=== PATIENT | male | born 1950 | race Two or more races ===

== ENCOUNTER 2017-06-04 15:09 | Outpatient (CLI) | payer OTHER | END 2017-06-04 15:10 | disposition home or self-care (01) | LOC: RAD 15:09 | DX: Z00.00 Encounter for general adult medical examination without abnormal findings (principal) ==

== ENCOUNTER 2018-06-02 14:17 | Outpatient (CLI) | payer OTHER | END 2018-06-02 14:51 | disposition home or self-care (01) | LOC: RAD 14:17 | DX: Z11.1 Encounter for screening for respiratory tuberculosis (principal) ==

== ENCOUNTER 2020-04-03 11:11 | Outpatient (CLI) | payer OTHER | END 2020-04-03 12:29 | disposition home or self-care (01) | LOC: PPH VACUNA 11:11 | PROVIDERS: ATTEND Emergency Medicine Pediatric Emergency Medicine | DX: Z23 Encounter for immunization (principal) ==

== ENCOUNTER → 2020-05-23 | Outpatient (CLI) | payer OTHER | END | disposition home or self-care (01) | LOC: MRI 12:38 | PROVIDERS: ATTEND Radiology Diagnostic Radiology | DX: M54.5 Low back pain (principal); M54.30 Sciatica, unspecified side; R10.10 Upper abdominal pain, unspecified | CPT/HCPCS: 72148; 72195 ==

== ENCOUNTER 2020-06-14 12:51 | Outpatient (CLI) | payer OTHER | END 2020-06-14 12:55 | disposition home or self-care (01) | LOC: RAD 12:51 | PROVIDERS: ATTEND Radiology Diagnostic Radiology | DX: I10 Essential (primary) hypertension (principal); Z71.0 Person encountering health services to consult on behalf of another person ==

== ENCOUNTER → 2020-07-18 07:52 | Outpatient (CLI) | payer OTHER | END | disposition home or self-care (01) | LOC: LAB 07:02 | PROVIDERS: ATTEND Radiology Diagnostic Radiology | DX: Z20.818 Contact with and (suspected) exposure to other bacterial communicable diseases (principal) ==

== ENCOUNTER → 2020-12-05 08:00 | Outpatient (CLI) | payer OTHER | END | disposition home or self-care (01) | LOC: PPH VACUNA 08:00 | PROVIDERS: ATTEND Emergency Medicine Pediatric Emergency Medicine | DX: Z23 Encounter for immunization (principal) ==

== ENCOUNTER 2020-12-05 08:58 | Outpatient (CLI) | payer OTHER | END 2020-12-05 09:02 | disposition home or self-care (01) | LOC: LAB 08:58 | PROVIDERS: ATTEND Radiology Diagnostic Radiology | DX: Z20.822 Contact with and (suspected) exposure to COVID-19 (principal) ==

== ENCOUNTER → 2021-01-08 08:25 | Outpatient (CLI) | payer OTHER | END | disposition home or self-care (01) | LOC: LAB 08:25 | PROVIDERS: ATTEND Radiology Diagnostic Radiology | DX: Z03.818 Encounter for observation for suspected exposure to other biological agents ruled out (principal) ==

== ENCOUNTER → 2021-05-06 08:14 | Outpatient (CLI) | payer OTHER ==
[~2021-05-06 08:14] MED LIST: CELEBREX200MG PO; DIAZEPAM5 MG; FINASTERIDE5 MG; MEDROLPACK PO; METHOCARBAMOL750 MG PO; SYNTHROID200 MCG; TAMSULOSIN HCL0.4 MG; ZESTRIL20 MG
== END | disposition home or self-care (01) ==
LOC: LAB 08:14
PROVIDERS: ATTEND Physical Medicine & Rehabilitation
DX: N30.01 Acute cystitis with hematuria (principal)

== ENCOUNTER 2021-05-06 08:38 | Outpatient (CLI) | payer OTHER ==
[~2021-05-06 08:38] MED LIST changes: -DIAZEPAM5 MG; -FINASTERIDE5 MG; -SYNTHROID200 MCG; -TAMSULOSIN HCL0.4 MG; -ZESTRIL20 MG
[2021-05-06] MEDS ORDERED: SYNTHROID200 MCG (23:54)
[2021-05-07] MEDS ORDERED: ZESTRIL20 MG (00:01)
[2021-05-07] MEDS ORDERED: DIAZEPAM5 MG (15:23)
[2021-05-07] MEDS ORDERED: TAMSULOSIN HCL0.4 MG (15:23)
[2021-05-07] MEDS ORDERED: FINASTERIDE5 MG (15:23)
== END 2021-05-06 09:00 | disposition home or self-care (01) ==
LOC: TOM 08:38 → EDBD 08:38 → TOM 09:00
PROVIDERS: ATTEND Radiology Diagnostic Radiology
DX: N49.2 Inflammatory disorders of scrotum (principal); R31.0 Gross hematuria
CPT/HCPCS: 74178; 76770; 76870; Q9965

== ENCOUNTER 2021-05-06 23:46 | Inpatient (IN) | payer OTHER ==
[~2021-05-06] VITALS: Ht 177.8 cm; Wt 95.3 kg
[2021-05-06] MEDS ORDERED: SYNTHROID200 MCG (23:54)
[2021-05-07] MEDS ORDERED: ZESTRIL20 MG (00:01)
[2021-05-07] MEDS ORDERED: TAMSULOSIN HCL0.4 MG (15:23)
[2021-05-07] MEDS ORDERED: DIAZEPAM5 MG (15:23)
[2021-05-07] MEDS ORDERED: FINASTERIDE5 MG (15:23)
== END 2021-05-10 08:42 | disposition home or self-care (01) | DRG 714 ==
LOC: ER 23:46 → SURH 05-07 08:38 → SEC-K 05-07 08:38 → SURH 05-07 11:11
PROVIDERS: ADMIT Urology; ATTEND Urology
PROC: 0VT08ZZ Resection of Prostate, Via Natural or Artificial Opening Endoscopic (ICD-10-PCS; principal; 2021-05-07)
DX: N40.1 Benign prostatic hyperplasia with lower urinary tract symptoms (principal); R33.8 Other retention of urine; R31.0 Gross hematuria; E10.9 Type 1 diabetes mellitus without complications; E03.8 Other specified hypothyroidism; I10 Essential (primary) hypertension; Z20.822 Contact with and (suspected) exposure to COVID-19; Z79.4 Long term (current) use of insulin

== ENCOUNTER 2021-05-28 10:00 | Outpatient (CLI) | payer OTHER ==
[~2021-05-28 10:00] MED LIST changes: +DIAZEPAM5 MG; +FINASTERIDE5 MG; +SYNTHROID200 MCG; +TAMSULOSIN HCL0.4 MG; +ZESTRIL20 MG
== END 2021-05-28 10:05 | disposition home or self-care (01) ==
LOC: LAB 10:00
PROVIDERS: ATTEND Radiology Diagnostic Radiology
DX: N39.0 Urinary tract infection, site not specified (principal)

== ENCOUNTER 2021-07-01 08:00 | Outpatient (CLI) | payer OTHER | END 2021-07-01 08:30 | disposition home or self-care (01) | LOC: PPH VACUNA 08:00 | PROVIDERS: ATTEND Emergency Medicine Pediatric Emergency Medicine | DX: Z23 Encounter for immunization (principal) ==

== ENCOUNTER → 2021-07-01 09:11 | Outpatient (CLI) | payer OTHER | END | disposition home or self-care (01) | LOC: LAB 09:11 | PROVIDERS: ATTEND Radiology Diagnostic Radiology | DX: N39.0 Urinary tract infection, site not specified (principal) ==

== ENCOUNTER 2022-08-26 11:07 | Outpatient (CLI) | payer OTHER | END 2022-08-26 13:20 | disposition home or self-care (01) | LOC: RAD 11:07 | PROVIDERS: ATTEND Radiology Diagnostic Radiology | DX: M72.2 Plantar fascial fibromatosis (principal) ==

== ENCOUNTER 2022-10-13 13:15 | Outpatient (CLI) | payer OTHER | END 2022-10-13 13:21 | disposition home or self-care (01) | LOC: RAD 13:15 | DX: J10.08 Influenza due to other identified influenza virus with other specified pneumonia (principal) ==

== ENCOUNTER 2023-04-07 08:52 | Outpatient (CLI) | payer OTHER ==
[2023-04-07 09:43] LABS: HEMATOCRIT 44.1 % (39.0-48.0); MEAN CELL VOLUME 86.3 fL (80.0-100.00); MEAN CORPUSCULAR HEMOGLOBIN 29.4 pg (27.00-32.0); MEAN CORPUSCULAR HGB CONC 34.1 g/dl (32.0-36.0); PLATELET COUNT 153 K/uL (150-450); RED BLOOD COUNT 5.11 M/uL (4.00-6.00); RED CELL DISTRIBUTION WIDTH 13.7 % (11.5-14.5)
[2023-04-07 09:47] LABS: ERYTHROCYTE SEDIMENTATION RATE 7 mm/hr
== END 2023-04-07 08:58 | disposition home or self-care (01) ==
LOC: LAB 08:52
PROVIDERS: ATTEND Ophthalmology
DX: H49.11 Fourth [trochlear] nerve palsy, right eye (principal)

== ENCOUNTER 2024-04-18 13:51 | Outpatient (CLI) | payer OTHER | END 2024-04-18 14:01 | disposition home or self-care (01) | LOC: SONOGRAMA 13:51 | PROVIDERS: ATTEND Internal Medicine Gastroenterology | DX: R10.9 Unspecified abdominal pain (principal) ==

== ENCOUNTER 2024-06-08 12:00 | Outpatient (CLI) | payer OTHER | END 2024-06-08 12:20 | disposition home or self-care (01) | LOC: SONOGRAMA 12:00 | PROVIDERS: ATTEND Internal Medicine Gastroenterology | DX: R10.9 Unspecified abdominal pain (principal) ==

== ENCOUNTER 2024-06-13 12:27 | Outpatient (CLI) | payer OTHER | END 2024-06-13 12:28 | disposition home or self-care (01) | LOC: NUCLEAR 12:27 | PROVIDERS: ATTEND Internal Medicine Gastroenterology | DX: K81.1 Chronic cholecystitis (principal) | CPT/HCPCS: 78227; A9537 ==